=== PATIENT | male | born 1965 | race Caucasian/White ===

== ENCOUNTER 2024-02-14 08:05 | Inpatient (IN) | payer BC ==
[~2024-02-14] VITALS: Ht 198.1 cm; Wt 77.7 kg
[2024-02-14 08:20] VITALS: O2SAT 94
[2024-02-14] MEDS ORDERED: ONDANSETRON HCL/PF 4 MG/2 ML VIAL ONE (08:20)
[2024-02-14] MEDS ORDERED: MORPHINE SULFATE INJ 4 MG/ML DISP.SYRIN ONE (08:20)
[2024-02-14] MEDS: ONDANSETRON HCL/PF - ER 4 MG/2 ML VIAL IV ONE (08:29)
[2024-02-14] MEDS: MORPHINE SULFATE INJ 2 MG/ML DISP.SYRIN IV ONE (08:29)
[2024-02-14 08:34] LABS: BASOPHILS # (AUTO) 0.1 K/uL (0.0-0.2); BASOPHILS % (AUTO) 1.1 % (0.0-2.0); EOSINOPHILS # (AUTO) 0.1 K/uL (0.0-0.7); EOSINOPHILS % (AUTO) 0.9 % (0.0-6.0); HEMATOCRIT 44 % (39-51); HEMOGLOBIN 15.3 g/dL (13.5-17.5); LYMPHOCYTES # (AUTO) 1.5 K/uL (0.8-4.8); LYMPHOCYTES % (AUTO) 18.4 % (20.0-44.0); MEAN CORPUSCULAR HEMOGLOBIN 32 PG (26.0-33.0); MEAN CORPUSCULAR HGB CONC 35 g/dl (31.0-36.0); MEAN CORPUSCULAR VOLUME 92 fL (80-96); MONOCYTES # (AUTO) 0.4 K/uL (0.1-1.30); MONOCYTES % (AUTO) 4.9 % (2.0-12.0); NEUTROPHILS # (AUTO) 5.9 K/uL (1.8-8.9); NEUTROPHILS % (AUTO) 74.7 % (43.0-81.0); PLATELET COUNT (AUTO) 174 K/uL (150-450); RED BLOOD CELL COUNT(AUTO) 4.71 MIL/uL (4.5-6.0); RED CELL DISTRIBUTION WIDTH 13.2 % (11.5-15.0); WHITE BLOOD COUNT (AUTO) 7.9 K/uL (4.3-11.0)
[2024-02-14 08:41] LABS: CALCIUM, SERUM 8.5 mg/dL (8.5-10.1); CREATININE 0.7 mg/dL (0.6-1.3); POTASSIUM 4.4 mmol/L (3.5-5.1)
[2024-02-14 08:53] LABS: INR 1.02 (0.91-1.10); PROTHROMBIN TIME 10.8 SECS (9.2-11.1)
[2024-02-14] MEDS ORDERED: TEST75GE10 TP (11:21)
[2024-02-14] MEDS ORDERED: FINA5TAB11 PO (11:21)
[2024-02-14] MEDS ORDERED: PREG150C93 PO (11:21)
[2024-02-14] MEDS ORDERED: CELE-85 PO (11:21)
[2024-02-14] MEDS ORDERED: PREG150C PO (11:21)
[2024-02-14] MEDS ORDERED: BICT1TAB PO (11:21)
[2024-02-14] MEDS ORDERED: MAG HYDROX/AL HYDROX/SIMETH 30 ML UDC PO PRN (13:00)
[2024-02-14] MEDS ORDERED: Z GUARD REMEDY 4 OZ OINT TP PRN (13:00)
[2024-02-14] MEDS ORDERED: ONDANSETRON HCL/PF 4 MG/2 ML VIAL IVP PRN (13:00)
[2024-02-14] MEDS ORDERED: MAGNESIUM HYDROXIDE 30 ML UDC PO PRN (13:00)
[2024-02-14] MEDS: MORPHINE SULFATE INJ 4 MG/ML DISP.SYRIN IV PRN (13:02)
[2024-02-14] MEDS: ACETAMINOPHEN 325 MG TABLET PO PRN (15:11)
[2024-02-14 16:14] VITALS: BP 137/86; TEMP 98.6; O2SAT 95
[2024-02-14] MEDS: PREGABALIN 25 MG CAPSULE PO SCH (16:36)
[2024-02-14] MEDS: PREGABALIN 100 MG CAPSULE PO SCH ×2 (16:36→21:09)
[2024-02-14 17:00] LABS: THYROID STIMULATING HORMONE 3.8 uIU/mL (0.358-3.74)
[2024-02-14] MEDS ORDERED: PREGABALIN 150 MG PO SCH (17:00)
[2024-02-14] MEDS: BIKTARVY 50-200-25 MG TABLET PO SCH (17:57)
[2024-02-14 20:28] VITALS: BP 128/81; TEMP 97.7; O2SAT 94
[2024-02-14] MEDS: BIKTARVY 50-200-25 MG TABLET PO ONE (20:36)
[2024-02-15] MEDS ORDERED: IV NS 0.9% 1,000 ML BAG IV PRN (03:30)
[2024-02-15] MEDS: IV NS 0.9% 1,000 ML BAG IV SCH (03:58)
[2024-02-15] MEDS ORDERED: ANESTHESIA TRAY IN PYXIS 1 EA TRAY MC ONE (07:24)
[2024-02-15] MEDS ORDERED: BUPIVACAINE 0.5 % PF 150 MG/30 ML VIAL ONE (07:24)
[2024-02-15 07:35] LABS: BASOPHILS % (AUTO) 0.7 % (0.0-2.0); EOSINOPHILS # (AUTO) 0.1 K/uL (0.0-0.7); EOSINOPHILS % (AUTO) 1.3 % (0.0-6.0); HEMATOCRIT 43 % (39-51); LYMPHOCYTES # (AUTO) 1.1 K/uL (0.8-4.8); LYMPHOCYTES % (AUTO) 21.9 % (20.0-44.0); MEAN CORPUSCULAR HEMOGLOBIN 32 PG (26.0-33.0); MEAN CORPUSCULAR HGB CONC 35 g/dl (31.0-36.0); MEAN CORPUSCULAR VOLUME 92 fL (80-96); MONOCYTES # (AUTO) 0.3 K/uL (0.1-1.30); MONOCYTES % (AUTO) 6.8 % (2.0-12.0); NEUTROPHILS # (AUTO) 3.4 K/uL (1.8-8.9); NEUTROPHILS % (AUTO) 69.3 % (43.0-81.0); PLATELET COUNT (AUTO) 162 K/uL (150-450); RED BLOOD CELL COUNT(AUTO) 4.64 MIL/uL (4.5-6.0); RED CELL DISTRIBUTION WIDTH 13.3 % (11.5-15.0); WHITE BLOOD COUNT (AUTO) 4.9 K/uL (4.3-11.0)
[2024-02-15 07:40] LABS: CALCIUM, SERUM 8.8 mg/dL (8.5-10.1); CREATININE 0.8 mg/dL (0.6-1.3); MAGNESIUM 1.9 mg/dL (1.8-2.4); PHOSPHORUS 3.5 mg/dL (2.5-4.9); POTASSIUM 4.2 mmol/L (3.5-5.1)
[2024-02-15] MEDS ORDERED: ROCURONIUM BROMIDE 50 MG/5 ML ONE (08:03)
[2024-02-15] MEDS ORDERED: FENTANYL PF 100MCG/2ML AMPUL ONE ×2 (08:05)
[2024-02-15] MEDS ORDERED: CLINDAMYCIN 900 MG/6 ML VIAL ONE (08:24)
[2024-02-15] MEDS ORDERED: ROPIVACAINE HCL 0.5% 5 MG/ML 30ML VIAL ONE (08:24)
[2024-02-15] MEDS: FINASTERIDE (5 MG) 5 MG TABLET PO SCH (09:00)
[2024-02-15] MEDS ORDERED: TESTOSTERONE 40.5 MG TP SCH (09:00)
[2024-02-15 14:51] LABS: BASOPHILS % (AUTO) 0.2 % (0.0-2.0); EOSINOPHILS % (AUTO) 0.1 % (0.0-6.0); HEMATOCRIT 36 % (39-51); HEMOGLOBIN 12.9 g/dL (13.5-17.5); LYMPHOCYTES # (AUTO) 0.5 K/uL (0.8-4.8); LYMPHOCYTES % (AUTO) 5.8 % (20.0-44.0); MEAN CORPUSCULAR HEMOGLOBIN 34 PG (26.0-33.0); MEAN CORPUSCULAR HGB CONC 36 g/dl (31.0-36.0); MEAN CORPUSCULAR VOLUME 93 fL (80-96); MONOCYTES # (AUTO) 0.3 K/uL (0.1-1.30); MONOCYTES % (AUTO) 3.6 % (2.0-12.0); NEUTROPHILS # (AUTO) 8.1 K/uL (1.8-8.9); NEUTROPHILS % (AUTO) 90.3 % (43.0-81.0); PLATELET COUNT (AUTO) 162 K/uL (150-450); RED BLOOD CELL COUNT(AUTO) 3.83 MIL/uL (4.5-6.0); RED CELL DISTRIBUTION WIDTH 13.1 % (11.5-15.0); WHITE BLOOD COUNT (AUTO) 8.9 K/uL (4.3-11.0)
[2024-02-15 16:00] VITALS: BP 110/72; TEMP 98.2; O2SAT 94
[2024-02-15] MEDS: CEFAZOLIN 2 GM in IV D5W 100 ML IV SCH (18:03)
[2024-02-15 21:46] VITALS: BP 126/77; TEMP 98.6; O2SAT 93
[2024-02-16 06:26] LABS: BASOPHILS % (AUTO) 0.5 % (0.0-2.0); EOSINOPHILS % (AUTO) 0.6 % (0.0-6.0); HEMATOCRIT 30 % (39-51); HEMOGLOBIN 10.8 g/dL (13.5-17.5); LYMPHOCYTES # (AUTO) 1.3 K/uL (0.8-4.8); LYMPHOCYTES % (AUTO) 18.8 % (20.0-44.0); MEAN CORPUSCULAR HEMOGLOBIN 33 PG (26.0-33.0); MEAN CORPUSCULAR HGB CONC 36 g/dl (31.0-36.0); MEAN CORPUSCULAR VOLUME 92 fL (80-96); MONOCYTES # (AUTO) 0.4 K/uL (0.1-1.30); MONOCYTES % (AUTO) 6.3 % (2.0-12.0); NEUTROPHILS % (AUTO) 73.8 % (43.0-81.0); PLATELET COUNT (AUTO) 143 K/uL (150-450); RED BLOOD CELL COUNT(AUTO) 3.26 MIL/uL (4.5-6.0); RED CELL DISTRIBUTION WIDTH 12.9 % (11.5-15.0); WHITE BLOOD COUNT (AUTO) 6.7 K/uL (4.3-11.0)
[2024-02-16 06:42] LABS: CALCIUM, SERUM 8.4 mg/dL (8.5-10.1); CREATININE 0.7 mg/dL (0.6-1.3)
[2024-02-16 08:00] VITALS: BP 129/79; TEMP 97.9; O2SAT 93
[2024-02-16] MEDS: HYDROCODONE/APAP 5/325MG TABLET PO PRN (08:54)
[2024-02-16] MEDS: ENOXAPARIN SODIUM 40 MG/0.4 ML DISP.SYRIN SQ SCH (09:00)
[2024-02-16 16:00] VITALS: BP 114/68; TEMP 99.3; O2SAT 98
[2024-02-16 20:00] VITALS: BP 110/72; TEMP 98.6; O2SAT 94
[2024-02-17 06:48] LABS: BASOPHILS % (AUTO) 0.6 % (0.0-2.0); EOSINOPHILS # (AUTO) 0.2 K/uL (0.0-0.7); EOSINOPHILS % (AUTO) 2.7 % (0.0-6.0); HEMATOCRIT 29 % (39-51); HEMOGLOBIN 10.5 g/dL (13.5-17.5); LYMPHOCYTES # (AUTO) 0.9 K/uL (0.8-4.8); MEAN CORPUSCULAR HEMOGLOBIN 33 PG (26.0-33.0); MEAN CORPUSCULAR HGB CONC 36 g/dl (31.0-36.0); MEAN CORPUSCULAR VOLUME 92 fL (80-96); MONOCYTES # (AUTO) 0.4 K/uL (0.1-1.30); MONOCYTES % (AUTO) 6.6 % (2.0-12.0); NEUTROPHILS # (AUTO) 4.6 K/uL (1.8-8.9); NEUTROPHILS % (AUTO) 76.1 % (43.0-81.0); PLATELET COUNT (AUTO) 148 K/uL (150-450); RED BLOOD CELL COUNT(AUTO) 3.18 MIL/uL (4.5-6.0); RED CELL DISTRIBUTION WIDTH 12.9 % (11.5-15.0); WHITE BLOOD COUNT (AUTO) 6.1 K/uL (4.3-11.0)
[2024-02-17 07:08] LABS: PHOSPHORUS 3.9 mg/dL (2.5-4.9)
[2024-02-17 07:15] LABS: CALCIUM, SERUM 8.7 mg/dL (8.5-10.1); CREATININE 0.7 mg/dL (0.6-1.3); POTASSIUM 3.9 mmol/L (3.5-5.1)
[2024-02-17 07:20] LABS: THYROID STIMULATING HORMONE 1.88 uIU/mL (0.358-3.74); URIC ACID 4.2 mg/dL (2.6-7.2)
[2024-02-17 08:00] VITALS: BP 120/76; TEMP 98.2; O2SAT 94
[2024-02-17] MEDS ORDERED: ENOX40DI SQ (09:19)
[2024-02-17] MEDS ORDERED: HYDR-4303 PO (09:22)
[2024-02-17 16:00] VITALS: BP 141/82; TEMP 97.5; O2SAT 95
== END 2024-02-17 19:45 | DRG 481 ==
LOC: ER 08:08 → MED 10:24
PROVIDERS: ADMIT Internal Medicine; ATTEND Internal Medicine
PROC: 0QS606Z Reposition Right Upper Femur with Intramedullary Internal Fixation Device, Open Approach (ICD-10-PCS; principal; 2024-02-15)
DX: S72.141A Displaced intertrochanteric fracture of right femur, initial encounter for closed fracture (principal); E87.1 Hypo-osmolality and hyponatremia; Y93.55 Activity, bike riding; V18.4XXA Pedal cycle driver injured in noncollision transport accident in traffic accident, initial encounter; G62.9 Polyneuropathy, unspecified; E86.9 Volume depletion, unspecified; Z88.0 Allergy status to penicillin; I35.0 Nonrheumatic aortic (valve) stenosis; Z79.899 Other long term (current) drug therapy; N40.0 Benign prostatic hyperplasia without lower urinary tract symptoms; V19.9XXA Pedal cyclist (driver) (passenger) injured in unspecified traffic accident, initial encounter; Y93.9 Activity, unspecified; Y92.89 Other specified places as the place of occurrence of the external cause; E29.1 Testicular hypofunction
CPT/HCPCS: 36415; 71045-TC; 73502; 73552; 80048-TC; 80061-TC; 82962-TC; 83735-TC; 84100-TC; 84439-TC; 84443-TC; 84550-TC; 85025-TC; 85610-TC; 86850-TC; 87081-TC; 93307-TC; 97110-TC; 97116-TC; 97530-TC; 97535-TC; A4223; A6209; A6253; A6403; C1713; G0378; J0690; J1100; J1650; J2270; J2405; J2704; J2795; J3010; J3490; J7030; J7060